=== PATIENT | female | born 1970 | race Caucasian/White ===

== ENCOUNTER 2021-03-10 20:38 | Emergency (ER) | payer OTHER ==
[~2021-03-10] VITALS: Ht 157.5 cm; Wt 51.3 kg
[2021-03-10 20:45] VITALS: BP 121/79
[2021-03-10 21:22] LABS: ABSOLUTE BASOPHILS 0.1 thou/uL (0.0-0.2); ABSOLUTE LYMPHOCYTES 1.7 thou/uL (0.8-5.3); ABSOLUTE NEUTROPHILS 8.1 thou/uL (1.6-8.1); BASOPHILS 0.7 %; EOSINOPHILS 0.4 %; HEMOGLOBIN 12.4 gm/dL (12.0-15.0); LYMPHOCYTES 15.3 %; MCH 28.8 pg (26.0-34.0); MCHC 34.3 g/dL (28.0-37.0); MPV 7.4 fl. (7.2-11.1); NUCLEATED RBCS 0 /100WBC; PLATELET COUNT* 449 thou/uL (150-400); POLYS 74.6 %; RBC 4.28 mil/uL (4.20-5.00); WBC 10.8 thou/uL (4.0-11.0)
[2021-03-10 21:40] LABS: CALCIUM 8.7 mg/dL (8.5-10.1); CREATININE 0.9 mg/dL (0.6-1.3); POTASSIUM 5.3 mmol/L (3.5-5.1)
[2021-03-10 21:41] LABS: ALBUMIN 2.4 g/dL (3.4-5.0); TOTAL BILIRUBIN 0.7 mg/dL (<0.1-1.0); TOTAL PROTEIN 7.4 g/dL (6.4-8.2)
[2021-03-10 22:19] LABS: BE 1.8 mmol/L (-2 to +3); PCO2 38.8 mmHg (35.0-45.0); PO2 82.5 mmHg (75.0-100.0); pH 7.443 (7.340-7.450)
[2021-03-10 22:29] LABS: MAGNESIUM 2.2 mg/dL (1.8-2.4); PHOSPHORUS* 3.9 mg/dL (2.5-4.9)
[2021-03-10 23:45] VITALS: BP 110/57
--- NOTE | 2021-03-11 13:59 | EKG ---
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
== END 2021-03-10 23:45 | disposition short-term general hospital (02) ==
LOC: M.ERS 20:38 → M.TBA-ER 21:59 → M.ERS 21:59
PROVIDERS: Personal Emergency Response Attendant; Physician Assistant
DX: E11.65 Type 2 diabetes mellitus with hyperglycemia (principal); Z20.822 Contact with and (suspected) exposure to COVID-19; M89.9 Disorder of bone, unspecified